=== PATIENT | male | born 1995 | race Caucasian/White ===

== ENCOUNTER 2022-10-13 14:52 | Day surgery (SDC) | payer OTHER ==
[2022-10-07 15:18] VITALS: BMI 29.7
[2022-10-13] MEDS ORDERED: ACETAMINOPHEN 325 MG TABLET (FP) PO PRN (15:12)
[2022-10-13] MEDS ORDERED: ONDANSETRON 4 MG/2 ML VIAL IVPUSH PRN (15:12)
[2022-10-13] MEDS ORDERED: oxyCODONE HCL 5 MG TABLET PO PRN ×2 (15:12)
[2022-10-13] MEDS ORDERED: LACTATED RINGERS SOLUTION 1,000 ML IV SCH (15:15)
[2022-10-13] MEDS ORDERED: PROPOFOL 60 ML ONE (15:19)
[2022-10-13] MEDS ORDERED: MIDAZOLAM HCL 2 MG/2 ML SINGLE DOSE VIAL ONE (15:26)
[2022-10-13] MEDS ORDERED: KETAMINE HCL 200 MG/20 ML VIAL ONE (15:29)
[2022-10-13] MEDS ORDERED: ceFAZolin SODIUM 1 GM VIAL ONE ×2 (15:30→15:31)
[2022-10-13] MEDS ORDERED: KETOROLAC TROMETHAMINE 30 MG/1 ML VIAL ONE (15:30)
[2022-10-13] MEDS ORDERED: DEXAMETHASONE SOD PHOSPHATE 4 MG/1 ML VIAL ONE (15:30)
[2022-10-13] MEDS ORDERED: BUPIVACAINE HCL/PF 0.5% (5MG/ML) 10 ML VIAL ONE (15:36)
[2022-10-13] MEDS ORDERED: DEXAMETHASONE SOD PHOSPHATE 10 MG/1 ML VIAL ONE (15:36)
[2022-10-13] MEDS ORDERED: BUPIVACAINE HCL/PF 0.5% (5 MG/ML) 30 ML VIAL IJ ONE (15:36)
[2022-10-13] MEDS ORDERED: ACETAMINOPHEN INJECTION 100 ML IVPB ONE (15:37)
[2022-10-13] MEDS ORDERED: PHENYLEPHRINE HCL 10 MG/1 ML SINGLE DOSE VIAL ONE (17:30)
[2022-10-13] MEDS ORDERED: PROPOFOL 20 ML ONE ×2 (17:53→18:34)
[2022-10-13 19:35] VITALS: TEMP 98.2
[2022-10-13 20:02] VITALS: BP 138/53; PULSE 82; RESP 16
== END 2022-10-13 22:50 | disposition home or self-care (01) ==
LOC: FASU 14:52
PROVIDERS: ATTEND Orthopaedic Surgery Sports Medicine
PROC: 0QSG04Z Reposition Right Tibia with Internal Fixation Device, Open Approach (ICD-10-PCS; 2022-10-13)
PROC: 0QSG04Z Reposition Right Tibia with Internal Fixation Device, Open Approach (ICD-10-PCS; 2022-10-13)
PROC: 0QSJ04Z Reposition Right Fibula with Internal Fixation Device, Open Approach (ICD-10-PCS; principal; 2022-10-13 16:43)
DX: S82.851A Displaced trimalleolar fracture of right lower leg, initial encounter for closed fracture (principal); X58.XXXA Exposure to other specified factors, initial encounter; Y93.9 Activity, unspecified; Y92.9 Unspecified place or not applicable
CPT/HCPCS: 73610-TC-RT-FY; 73630-TC-RT-FY; 94760; C1713; J1100